=== PATIENT | female | born 1990 | race African-American/Black ===

== ENCOUNTER 2019-12-27 13:50 | Emergency (ER) | payer OTHER, SELFPAY ==
[2019-12-27 14:13] VITALS: BP 122/63; PULSE 83; RESP 18; TEMP 36.7; O2SAT 97
--- NOTE | 2019-12-27 15:03 | PC.NURSE ---
in br to obtain ua spec.
--- NOTE | 2019-12-27 15:39 | ED.GENADULT ---
HPI - General Adult General Chief complaint: Urogenital-Female <KEARA Bee - Last Filed: 01/03/20 03:54> Stated complaint: std <KEARA Bee - Last Filed: 01/03/20 03:54> Time Seen by Provider: 12/27/19 15:39 <KEARA Bee - Last Filed: 01/03/20 03:54> Source: patient and RN notes reviewed <KEARA Bee - Last Filed: 01/03/20 03:54> Mode of arrival: ambulatory <KEARA Bee - Last Filed: 01/03/20 03:54> Limitations: no limitations <KEARA Bee - Last Filed: 01/03/20 03:54> History of Present Illness HPI narrative: 29-year-old -Citizen Of [place] female presents with complaints of burning and urgency with urination, vaginal itching, and that she was exposed to trichomoniasis for 1 day. Curtis says her boyfriend called her yesterday and infromed her he tested positive for Trichomoniasis. No treatment. No significant pelvic pain. No dysuria. Denies fever or chills. No concerns for STDs. No history of STDs. No new partners. Sexually active. Unprotected intercourse with present partner. Denies multiple partners. Does not douche. No exacerbating factors. Denies hematuria or vaginal bleeding. Denies being , LMP 12/17/19.? No flank pain. Denies nausea, vomiting, and abdominal pain. Remains active. The patient reports she have not been diagnosed with COVID-19. The patient reports she is not waiting for the results of a COVID-19 lab test. The patient reports she do not have fever, chills, weakness, fatigue, or myalgia. The patient reports she do not have a new or worsening cough or shortness of breath. Denies chest pain. The patient reports she do not have any rhinorrhea, congestion, sore throat, and diarrhea. Tolerating po intake well. Denies recent traveling. Denies concerns for COVID-19 or exposures been home since [id number] order except for essential household needs, working, and return home. At this time, patient is not suspected of having COVID-19. Some parts of this dictation were generated by voice recognition software and may contain typographical and/or grammatical inaccuracies. <KEARA Bee - Last Filed: 01/03/20 03:54> Related Data Allergies/adverse reactions: Allergies Allergy/AdvReac Type Severity Reaction Status Date / Time No Known Allergies Allergy Verified 11/05/19 12:48 <KEARA Bee - Last Filed: 01/03/20 03:54> Review of Systems Review of Systems: Narrative: CONSTITUTIONAL: Denies fever, chills, sweats. EYES: Denies visual changes, redness, discharge. ENT: Denies rhinorrhea, congestion, sore throat, otalgia. CARDIOVASCULAR: Denies chest pain, palpitations, edema. RESPIRATORY: Denies dyspnea, wheezing, cough. GASTROINTESTINAL: Denies abdominal pain, nausea, vomiting, diarrhea. GENITOURINARY: Complains of dysuria (burning and urgency), vaginal irritation, exposed to trichomoniasis. Denies hematuria, abnormal discharge. SKIN: Denies rash or itching. MUSCULOSKELETAL: Denies acute back pain, joint pain, or myalgia. NEUROLOGIC: Denies numbness or focal weakness. PSYCHIATRIC: Denies anxiety or depression. All systems reviewed & are unremarkable except as noted in HPI and below. <KEARA Bee - Last Filed: 01/03/20 03:54> [facility] Past Medical History Medical History: Medical History (Updated 12/28/19 @ 00:01 by Tej Machado) Heart disease <KEARA Bee - Last Filed: 01/03/20 03:54> Surgical History Surgical History: Surgical History (Updated 12/27/19 @ 19:23 by KEARA Bee) History of heart surgery <KEARA Bee - Last Filed: 01/03/20 03:54> Family History Family History: Family History (Updated 12/27/19 @ 19:24 by KEARA Bee) Father Alive and well Mother Alive and well <KEARA Bee - Last Filed: 01/03/20 03:54> Social History Social History:
== END 2019-12-27 15:57 | disposition home or self-care (01) ==
PROVIDERS: Emergency Provider Nurse Practitioner Family
DX: Z20.2 Contact with and (suspected) exposure to infections with a predominantly sexual mode of transmission (principal); F17.220 Nicotine dependence, chewing tobacco, uncomplicated
CPT/HCPCS: 81003; 87077; 87086; 87088; 87491; 87591; 87661; 99213; G0463

== ENCOUNTER 2020-11-17 15:38 | Emergency (ER) | payer OTHER, SELFPAY ==
--- NOTE | ~2020-11-17 | XR_ITS ---
XR wrist LT min 3V 11/17/2020 16:04 Indication: Left radial wrist pain Procedure: 4 views left wrist Comparison: No prior studies for comparison. Findings: There is an ossific density dorsal to the carpal bones on the lateral view, consistent with age-indeterminate triquetral fracture. No other fracture or traumatic malalignment. Mild dorsal soft tissue swelling. Impression: 1: Age-indeterminate triquetral fracture. Correlate for point tenderness. Reviewed, dictated and finalized at location B. Impression: 1: Age-indeterminate triquetral fracture. Correlate for point tenderness.
[2020-11-17 15:48] VITALS: BP 122/61; PULSE 85; RESP 16; TEMP 36.3; O2SAT 99
--- NOTE | 2020-11-17 15:54 | ED.UPPEXIN ---
HPI - Extremity Injury (Upper) General Chief Complaint: Extremity Injury, Upper Stated Complaint: Left Wrist Pain Time Seen by Provider: 11/17/20 15:54 Source: patient Mode of arrival: ambulatory Limitations: no limitations History of Present Illness HPI narrative: Curtis Kang is a 29 yo female with a PMH of heart surgery as a child who comes to express care with L wrist pain - sudden onset. 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 EYES: Denies visual changes, redness, discharge. ENT: Denies rhinorrhea, congestion, sore throat, otalgia. CARDIOVASCULAR: Denies chest pain, palpitations, edema. RESPIRATORY: Denies dyspnea, wheezing, cough GASTROINTESTINAL: Denies abdominal pain, nausea, vomiting, diarrhea. GENITOURINARY: Denies dysuria, hematuria, abnormal discharge SKIN: Denies rash or itching. NEUROLOGIC: Denies numbness, or focal weakness. PSYCHIATRIC: Denies anxiety or depression. Left wrist pain PMFSH Past Medical History Medical History Heart disease Surgical History Surgical History History of heart surgery Family History Family History Father Alive and well Mother Alive and well Grandparent Diabetes mellitus Social History Social History Smoking status: Never smoker Smokeless tobacco user: chewing tobacco Second hand tobacco smoke exposure: No Alcohol intake: never Substance use: never Gender identity (if verbalized by the patient): Female Comments At time of signature, I agree with nursing past medical, surgical, social and family history. There is no relevant family history pertinent to the presenting complaint. Exam Narrative: Exam Narrative: GENERAL: This is a well-nourished, well-developed patient, in mild distress. HEAD: normocephalic, atraumatic. EYES: Sclera clear/white. Vision is grossly intact. EARS: External ears normal, Hearing grossly intact. NOSE: External nose normal without nasal discharge, nares without redness, no rhinorrhea. THROAT: Mucous membranes moist, NECK: Neck supple, CARDIOVASCULAR: Regular rate and rhythm without murmurs, gallops, or rubs. RESPIRATORY: Clear to auscultation. Breath sounds equal bilaterally. No wheezes, rales, or rhonchi. GASTROINTESTINAL: Abdomen soft, non-tender, SKIN: warm, intact with no suspicious lesions or rash, good texture and turgor. NEURO: awake, alert, and oriented to person, place and time. There were no obvious focal neurologic abnormalities. Steady gait EXTREMITIES: Normal range of motion on R - c/o mild swelling and pain on ulnar side of L wrist- good intrafinger strength, goog tomasa opposition, flex and extend fair, able to supinate/ pronate BACK: Nontender without deformity Course Course Emergency Course: 39-year-old patient comes to [facility] for evaluation of left wrist, pain in radial side of wrist no known injury but has mild swelling X-ray left wrist showed age indeterminate triquetral fx- combined with tenderness, placed in age wrap and will get wrist guard. RICE, anti inflammatory for pain Vital Signs Vital signs: Vital Signs Temperature 97.4 F L 11/17/20 15:48 Pulse Rate 85 11/17/20 15:48 Respiratory Rate 16 11/17/20 15:48 Blood
== END 2020-11-17 17:03 | disposition home or self-care (01) ==
PROVIDERS: Emergency Provider Nurse Practitioner
DX: S62.115A Nondisplaced fracture of triquetrum [cuneiform] bone, left wrist, initial encounter for closed fracture (principal); X58.XXXA Exposure to other specified factors, initial encounter; S63.502A Unspecified sprain of left wrist, initial encounter; W51.XXXA Accidental striking against or bumped into by another person, initial encounter; Y99.0 Civilian activity done for income or pay
CPT/HCPCS: 73110; 99214; G0463

== ENCOUNTER 2021-07-26 15:51 | Emergency (ER) | payer OTHER, SELFPAY ==
[2021-07-26 17:01] VITALS: BP 122/67; PULSE 97; RESP 16; TEMP 35.7; O2SAT 100
--- NOTE | 2021-07-26 17:12 | ED.FEMALEGU ---
HPI - Female Genitourinary General Chief complaint: Urogenital-Female Stated complaint: BV INFECTION Time Seen by Provider: 07/26/21 17:35 Source: patient and RN notes reviewed Mode of arrival: ambulatory Limitations: no limitations History of Present Illness HPI Narrative: 30-year-old female presents with concern for vaginal itching. She reports she began having itching or vaginal irritation 2 days ago. Reports she tried Monistat which seemed to irritate her labia more. She denies any vaginal discharge, urine frequency, urgency, flank pain, nausea, vomiting, fever. MD elicited complaint: genital itching Related Data Allergies Allergy/AdvReac Type Severity Reaction Status Date / Time No Known Allergies Allergy Verified 11/17/20 15:52 Review of Systems Review of Systems: CONSTITUTIONAL: Denies malaise, chills, sweats, or fever. CARDIOVASCULAR: Denies chest pain, palpitations, or edema. RESPIRATORY: Denies cough or dyspnea. GASTROINTESTINAL: Denies abdominal pain, nausea, vomiting, diarrhea GENITOURINARY: Denies dysuria, frequency, urgency, suprapubic pressure. Denies flank pain or hematuria. Reports vaginal itching and irritation SKIN: Denies rash or itching. MUSCULOSKELETAL: Denies back pain or myalgia. All systems reviewed & are unremarkable except as noted in HPI and below PMFSH Past Medical History Medical History Heart disease Surgical History Surgical History History of heart surgery Family History Family History Father Alive and well Mother Alive and well Grandparent Diabetes mellitus Social History Social History Smoking status: Never smoker Smokeless tobacco user: chewing tobacco Second hand tobacco smoke exposure: No Alcohol intake: never Substance use: never Gender identity (if verbalized by the patient): Female Comments At time of signature, agree with nursing past medical, surgical, social and family history. There is no relevant family history pertinent to the presenting complaint Exam Narrative: GENERAL: Well-appearing, well-nourished, and in no acute distress. HEAD: Normocephalic. EYES: PERRLA, conjunctivae clear. NECK: Supple. No lymphadenopathy CHEST: Clear to auscultation. No respiratory distress. HEART: Regular rate and rhythm. SKIN: Warm, dry, no rash. NEURO: Alert and oriented x3. PSYCH: Normal mood and affect Course Course Emergency Course: Patient is aware of diagnosis, understands and agrees to treatment plan. Anticipatory guidance given. Patient agrees to follow-up as directed and is aware of reasons to seek care at the emergency department. Portions of this record may have been created with voice recognition software Level of Care: Express Care Visit Vital Signs Vital signs: Vital Signs Temperature 96.2 F L 07/26/21 17:01 Pulse Rate 97 07/26/21 17:01 Respiratory Rate 16 07/26/21 17:01 Blood Pressure 122/67 07/26/21 17:01 Pulse Oximetry 100 07/26/21 17:01 Temperature 96.2 F L 07/26/21 17:01 Pulse Rate 97 07/26/21 17:01 Respiratory Rate 16 07/26/21 17:01 Blood Pressure 122/67 07/26/21 17:01 Pulse Oximetry 100 07/26/21 17:01 Reviewed. MDM - Female Genitourinary MDM Narrative Medical decision making narrative: Exam findings and UA show no acute concerns or changes; patient is non-toxic appearing and is in no distress. Patient is appropriate for outpatient treatment and follow-up. Differential Diagnosis Differential diagnosis: Likely urinary tract infection and cystitis Lab Data Labs: Urine Glucose Negative Reference Range: Negative Urine Bilirubin Negative Reference Rang
== END 2021-07-26 17:49 | disposition home or self-care (01) ==
PROVIDERS: Emergency Provider Nurse Practitioner
DX: N89.8 Other specified noninflammatory disorders of vagina (principal)
CPT/HCPCS: 81003; 99213; G0463

== ENCOUNTER 2022-09-28 15:11 | Emergency (ER) | payer OTHER, SELFPAY ==
[2022-09-28 15:14] VITALS: BP 133/64; PULSE 88; RESP 18; TEMP 36.6
[2022-09-28 16:34] LABS: Appearance Urine Cloudy (Clear); Bacteria Urine 1+ /hpf; Bilirubin Urine Negative (Negative); Blood Urine Negative (Negative); Color Urine Yellow (Yellow); Glucose Urine UA Negative (Negative); Ketones Urine Negative (Negative); Leukocyte Esterase Ur 3+ LEU/UL (Negative); Nitrate Urine Negative (Negative); Non Pathogenic Casts 0-2; Protein Urine Negative (Negative); RBC Urine 0-2 /hpf (0-2); Specific Grav Ur 1.019 (1.001-1.035); Squamous Epithelial Cell Urine Many /hpf (Few); Urobilinogen Urine 0.2 mg/dL (<2.0); pH Urine 5.5 (5.0-9.0)
[2022-09-28 17:03] LABS: Add Urine Microscopic? YES
--- NOTE | 2022-09-28 17:25 | ED.FEMALEGU ---
HPI - Female Genitourinary General Chief complaint: DEPUTY HEAD Stated complaint: vaginal pain Time Seen by Provider: 09/28/22 16:46 Source: patient and RN notes reviewed Mode of arrival: ambulatory Limitations: no limitations History of Present Illness HPI Narrative: This is a 31 year old female who presents for evaluation of vaginal irritation and discharged. She reports history of bacterial vaginosis. She has vaginal irritation and vaginal discharge for 3 days. She describes her discharge as white and creamy without odor. She is concerned she has BV. She tried monostat without improvement of her symptoms. She denies pelvic pain, nausea, vomiting or painful sexual intercourse. She denies recent known exposure to STD or partner with symptoms. She has appointment with [facility] next week for pap smear but she did not want to wait on that visit. Related Data Allergies Allergy/AdvReac Type Severity Reaction Status Date / Time No Known Allergies Allergy Verified 09/28/22 16:25 Review of Systems Constitutional: Constitutional: Denies weakness Cardiovascular: Cardiovascular: Denies syncope, Denies rapid heart rate, Denies irregular heart rhythm, Denies leg edema and Denies dyspnea Respiratory: Respiratory: Denies chest congestion, Denies hemoptysis, Denies excessive phlegm production and Denies dyspnea Gastrointestinal: Gastrointestinal: Denies abdominal pain, Denies hematochezia, Denies diarrhea and Denies vomiting Genitourinary: Genitourinary: Denies hematuria, Denies nocturia, Denies genital lesions, Denies dysuria, Denies pelvic pain and Reports vaginal discharge Musculoskeletal: Musculoskeletal: Denies joint swelling, Denies loss of height and Denies muscle weakness Neurologic: Denies syncope, Denies focal weakness and Denies weakness [facility] Past Medical History Medical History Heart disease Surgical History Surgical History History of heart surgery Family History Family History Father Alive and well Mother Alive and well Grandparent Diabetes mellitus Social History Social History Smoking status: Never smoker Smokeless tobacco user: chewing tobacco Second hand tobacco smoke exposure: No Alcohol intake: never Substance use: never Living arrangements: with family Occupation/Education: occupation Gender identity (if verbalized by the patient): Female Exam Const: General: no acute distress and alert Nutritional Appearance: well nourished Orientation/consciousness: patient oriented x3 Eyes: EOM: EOMs intact bilaterally Resp: Effort & Inspection: normal respiratory effort GI: GI Palp: Yes Soft to palpation, No Tenderness to palpation present (GI), No Guarding due to palpation present (GI) and No Rigid due to palpation Auscultation: normal bowel sounds : General: Yes no CVA tenderness Speculum Exam - Vagina: abnormal vaginal discharge yellow Speculum Exam - Cervix: Cervical os closed Bimanual exam- vagina & uterus: no cervical motion tenderness Bimanual Exam- Adnexa, other: adnexal mass, no tenderness and No adnexal tenderness OB/external & speculum: no herpetic lesions Back/Spine/Pelvis: Back: no CVA tenderness Skin: General skin exam: normal color Rashes: no rashes Wounds: no wounds Neuro: General: patient oriented x3, moves all extremities and CN's II-XI intact bilaterally Extrem: General: normal to inspection Psych: Appearance: grossly normal Mental Status: mental status grossly normal Affect: normal affect Attitude: cooperative Course Reevaluation(s) Reevaluation #1: Patient presented for vaginal discharge. Swabs ordered for GC chlamydia, trichomonas and genital culture. She understands only trichomonas will return today. trichomonas was negative so t
== END 2022-09-28 18:24 | disposition home or self-care (01) ==
PROVIDERS: Emergency Medicine; Emergency Provider General Practice; PCP Obstetrics & Gynecology
DX: N89.8 Other specified noninflammatory disorders of vagina (principal); I51.9 Heart disease, unspecified; F17.220 Nicotine dependence, chewing tobacco, uncomplicated
CPT/HCPCS: 81001; 81025; 87070; 87077; 87086; 87088; 87147; 87491; 87591; 87808; 99284

== ENCOUNTER 2024-04-30 09:26 | Emergency (ER) | payer SELFPAY ==
--- NOTE | ~2024-04-30 | XR_ITS ---
EXAMINATION: XR chest 2V DATE: 04/30/2024 10:39 INDICATION: Chest tightness. TECHNIQUE: Frontal and lateral views of the chest were obtained. COMPARISON: Chest 2 views 06/04/17 FINDINGS: There is no pneumonia, pleural effusion, or pneumothorax. The heart size is normal. Median sternotomy wires and mediastinal surgical clips are noted. IMPRESSION: 1. No acute cardiopulmonary disease. Reviewed, dictated and finalized at location A.
[2024-04-30 09:30] VITALS: BP 125/81; PULSE 85; RESP 20; TEMP 36.7; O2SAT 96
[2024-04-30 09:34] VITALS: PULSE 85
--- NOTE | 2024-04-30 09:53 | ECG_ITS ---
Test Date: 2024-04-30 10:02:57 Measurements Intervals [facility] Rate: 71 P: 16 KS: 161 QRS: -14 QRSD: 109 T: 84 QT: 377 QTc: 410 Interpretive Statements SINUS RHYTHM WITHIN NORMAL LIMITS No previous ECG available for comparison Electronically Signed On 04-30-2024 14:37:48 CDT by Lon Vega M.D.
--- NOTE | 2024-04-30 10:01 | ED.GENADULT ---
HPI - General Adult General Chief complaint: Shortness of Breath/Dyspnea Stated complaint: Allergic Reaction Time Seen by Provider: 04/30/24 09:38 History of Present Illness HPI narrative: 33-year-old female presenting to the emergency department for evaluation for having some chest tightness and throat swelling while she was driving today. Patient states she was having some nausea before starting the drive and while driving she had onset of the symptoms. Patient pulled over and was treated by EMS and was given IM Benadryl. Emergency department patient states her symptoms have resolved. Patient denies any throat tightness or swelling, patient denies any chest pain or shortness of breath. Patient reports he does have a prior history of seizure disorder had a seizure yesterday. Related Data Allergies Allergy/AdvReac Type Severity Reaction Status Date / Time No Known Allergies Allergy Verified 04/30/24 09:35 Review of Systems Review of Systems: All systems reviewed & are unremarkable except as noted in HPI and below PMFSH Past Medical History Medical History Heart disease Surgical History Surgical History History of heart surgery Family History Family History Father Alive and well Mother Alive and well Grandparent Diabetes mellitus Social History Social History Smoking status: Never smoker Smokeless tobacco user: chewing tobacco Second hand tobacco smoke exposure: No Alcohol intake: never Substance use: never Living arrangements: with family Occupation/Education: occupation Gender identity (if verbalized by the patient): Female Exam Narrative: APPEARANCE: Well appearing, no pain, no distress, well-nourished. HEAD: normocephalic, atraumatic. EYES: PERRLA/EOMI, conjunctivae clear. NOSE: Normal no drainage EARS:TMS clear with good light reflex. THROAT: Pharynx clear, no exudate. NECK: Supple. No adenopathy, no masses. RESPIRATORY: Airway patent, respirations nonlabored. Clear to auscultation bilaterally, no rales, rhonchi, wheezing. CARDIOVASCULAR: Regular rate and rhythm without murmurs rubs or gallops. ABDOMINAL: Soft, nontender, nondistended, normal bowel sounds MUSCULOSKELETAL: Moves all extremities. Strength/ROM intact, No edema, No calf tenderness. NEURO: Alert. Cranial nerves II through XII intact. Good gait. Good coordination SKIN: Warm, dry. Normal Color Course Course Emergency Course: Patient felt improved with treatment and was discharged to home. Vital Signs Vital signs: Vital Signs Temperature 98.1 F 04/30/24 09:30 Pulse Rate 85 04/30/24 09:30 Respiratory Rate 20 04/30/24 09:30 Blood Pressure 125/81 04/30/24 09:30 Pulse Oximetry 96 04/30/24 09:30 Oxygen Delivery Room Air 04/30/24 09:30 Temperature 98.1 F 04/30/24 09:30 Pulse Rate 72 04/30/24 11:11 Respiratory Rate 14 04/30/24 11:11 Blood Pressure 124/65 04/30/24 11:11 Pulse Oximetry 100 04/30/24 11:11 Oxygen Delivery Room Air 04/30/24 11:10 Medical Decision Making MDM Narrative Medical decision making narrative: 33-year-old female presents to the emergency department for evaluation for throat swelling and chest tightness that occurred while she was driving. Patient states symptoms have resolved. Patient has no underlying evidence of allergic reaction. This plus secondary to a panic attack versus bronchospasm. Patient had was negative for influenza RSV and for COVID Vital Signs Vital Signs: Vital Signs Temperature 98.1 F 04/30/24 09:30 Pulse Rate 85 04/30/24 09:30 Respiratory Rate 20 04/30/24 09:30 Blood Pressure 125/81 04/30/24 09:30 Pulse Oximetry 96 04/30/24 09:30 Oxygen Delivery Room Air 04/30/24 09:30 Temperat
[2024-04-30 10:40] LABS: Influenza A QL RT-PCR Negative (Negative); Influenza B QL RT-PCR Negative (Negative); RSV RNA, RT-PCR Negative (Negative); SARS-CoV-2 RNA PCR Negative (Negative)
[2024-04-30 11:10] VITALS: O2SAT 100
[2024-04-30 11:11] VITALS: BP 124/65; PULSE 72; RESP 14; O2SAT 100
== END 2024-04-30 11:25 | disposition home or self-care (01) ==
LOC: ANHED 10:58
PROVIDERS: Emergency Provider Emergency Medicine
DX: R07.89 Other chest pain (principal); R22.1 Localized swelling, mass and lump, neck; Z20.822 Contact with and (suspected) exposure to COVID-19; G40.909 Epilepsy, unspecified, not intractable, without status epilepticus; I51.9 Heart disease, unspecified; F17.220 Nicotine dependence, chewing tobacco, uncomplicated
CPT/HCPCS: 71046; 87637; 93005; 99284

== ENCOUNTER 2024-05-01 16:23 | Emergency (ER) | payer SELFPAY ==
--- NOTE | ~2024-05-01 | CT_ITS ---
CT abdomen pelvis w con Ordering provider: Janis Wilhelm PA-C History: 33 years Female with . abd pain, vomiting, UTI . Comparison: None. Technique: CT abdomen and pelvis with IV and without oral contrast. Automated exposure control and it erative reconstruction technique were employed. The dose-length product was 240.64 mGy-cm. 100 mL Omn ipaque 350 was given IV. Findings: VISUALIZED LOWER CHEST: Normal. UPPER ABDOMINAL ORGANS: Liver: Heterogeneous enhancement is seen in the liver which may indicate passive hepatic congestion. Clinical correlation advised. Gallbladder: Normal. Spleen: Normal. Stomach/duodenum: Normal. Pancreas: Normal. Adrenals: Normal. Kidneys: Normal. PELVIC ORGANS: The bladder is underfilled with slightly thickened wall. Uterus: An enhancing lesion is seen in the uterus anteriorly most likely a fibroid measuring 1.6 cm. Cystic area is seen in to the right of the uterus most likely ovarian cystic mass which measures 3.2 x 11.1 x 7.6 cm. Ultrasound evaluation and correlation advised. Nabothian cyst is seen measuring 2 cm .. BOWEL AND MESENTERY: Colon: No evidence of diverticulitis. Normal appendix. Small Bowel: Normal. No obstruction. Peritoneum/mesentery: No free air or free fluid. No mesenteric lymphadenopathy. RETROPERITONEUM: Normal aorta. No retroperitoneal lymphadenopathy. MUSCULOSKELETAL: Superficial soft tissues: Small inguinal lymph nodes are noted. The superficial soft tissues are norm al. Bones: Normal spine. IMPRESSION: 1. No evidence of appendicitis, diverticulitis or intestinal obstruction. 2. Heterogenous enhancement of the liver which may indicate venous congestion. Clinical correlation and follow-up advised. 3. Cystic structure seen on the right side of the pelvis which is most likely ovarian cystic mass fu rther evaluation with ultrasound for confirmation is advised. 4. Small fibroid uterus. Nabothian cysts. Reviewed, dictated and finalized at location A. IMPRESSION: 1. No evidence of appendicitis, diverticulitis or intestinal obstruction. 2. Heterogenous enhancement of the liver which may indicate venous congestion. Clinical correlation and follow-up advised. 3. Cystic structure seen on the right side of the pelvis which is most likely ovarian cystic mass further evaluation with ultrasound for confirmation is advi sed. 4. Small fibroid uterus. Nabothian cysts.
[2024-05-01 16:27] VITALS: BP 140/70; PULSE 84; RESP 16; TEMP 36.5; O2SAT 98
[2024-05-01 16:42] LABS: Basophils Percent Auto 0.4 % (0.2-1.2); Eosinophils Absolute Auto 0.1 K/mm3 (0-0.3); Eosinophils Percent Auto 0.8 % (0-4.4); Hematocrit 41.5 % (37.0-47.0); Hemoglobin 13.6 g/dL (12.0-15.0); Immature Granulocyte Absolute 0.02 K/mm3 (0.00-0.031); Immature Granulocyte Percent A 0.3 % (0-0.5); Lymphocytes Absolute Auto 1.55 K/mm3 (0.9-3.2); Lymphocytes Percent Auto 21.6 % (18.3-44.2); Mean Corpuscular HGB Conc 32.8 g/dl (32-36); Mean Corpuscular Hemoglobin 29.6 pg (26-34); Mean Corpuscular Volume 90.4 fl (80-100); Mean Platelet Volume 10.4 fl (7.4-10.4); Monocytes Absolute Auto 0.5 K/mm3 (0.1-0.6); Monocytes Percent Auto 7.2 % (2.6-8.5); Neutrophils Percent Auto 69.7 % (45.5-73.1); Platelet Count Result 287 k/mm3 (150-375); Red Blood Count 4.59 M/mm3 (4.2-5.4); Red Cell Distribution Width 12.4 % (11.5-14.5); White Blood Count 7.2 K/mm3 (4.5-10.0)
[2024-05-01 17:17] LABS: Alanine Aminotransferase 14 U/L (6-35); Albumin Level 4.4 g/dL (3.5-5.1); Alkaline Phosphatase 53 U/L (38-126); Anion Gap 12 mmol/L (4-12); Aspartate Amino Transferase 26 U/L (14-36); Bilirubin,Total 0.8 mg/dL (0.2-1.3); Blood Urea Nitrogen 9 mg/dL (7-17); Calcium 9.1 mg/dL (8.4-10.2); Carbon Dioxide 22 mmol/L (22-30); Chloride 106 mmol/L (98-107); Estimated CRCL calculation 70 ml/min; Estimated Glomerular Filt Rate > 60; Glucose 115 mg/dL (65-110); Lipase 124 U/L (23-300); Potassium 3.1 mmol/L (3.4-5.0); Sodium 140 mmol/L (137-145)
--- NOTE | 2024-05-01 18:10 | ED.NAVMDI ---
HPI - Nausea/Vomiting/Diarrhea General Chief complaint: Nausea/Vomiting/Diarrhea <SYLVIE Harding Last Filed: 05/01/24 18:15> Stated complaint: N/V <SYLVIE Harding Last Filed: 05/01/24 18:15> Time Seen by Provider: 05/01/24 18:10 <SYLVIE Harding Last Filed: 05/01/24 18:15> Focused HPI: Patient is a 33 y/o female who presents to the ED with c/o N/V. States sx's began yesterday and persisted into today. Unable to keep down food or drink. Denies hx of similar episodes or sick contacts. States she feels very dehydrated. Does note she has had decreased urine output today. She also reports a few episodes of diarrhea. Denies abdominal pain, rectal bleeding, melena, cough, cold sx's, fever. GENERAL: Well-appearing, well-nourished, and in no acute distress. HEAD: Normocephalic, atraumatic. CHEST: Clear to auscultation. ?No respiratory distress. HEART: Regular rate and rhythm.? ABD: No tenderness throughout abdomen. NEURO: ?Alert and oriented x3. Patient screened in triage and initial orders placed.? ?Additional care and disposition to be based upon?diagnostic testing and treatment. <SYLVIE Harding Last Filed: 05/01/24 18:15> Source: patient <SYLVIE Harding Last Filed: 05/01/24 18:15> Mode of arrival: ambulatory <SYLVIE Harding Last Filed: 05/01/24 18:15> Limitations: no limitations <SYLVIE Harding Last Filed: 05/01/24 18:15> Related Data Allergies/Adverse reactions: Allergies Allergy/AdvReac Type Severity Reaction Status Date / Time No Known Allergies Allergy Verified 05/01/24 16:23 <SYLVIE Harding Last Filed: 05/01/24 18:15> Review of Systems Review of Systems: CONSTITUTIONAL: Denies fever GASTROINTESTINAL: Reports abdominal pain, nausea, vomiting, and diarrhea. GENITOURINARY: Denies dysuria <Janis Wilhelm PA-C - Last Filed: 05/02/24 00:48> All systems reviewed & are unremarkable except as noted in HPI and below <Janis Wilhelm PA-C - Last Filed: 05/02/24 00:48> PMFSH Past Medical History Medical History: Medical History Heart disease <Carmelita Hernandes PA-C - Last Filed: 05/01/24 18:15> Surgical History Surgical History: Surgical History History of heart surgery <Carmelita Hernandes PA-C - Last Filed: 05/01/24 18:15> Family History Family History: Family History Father Alive and well Mother Alive and well Grandparent Diabetes mellitus <Carmelita Hernandes PA-C - Last Filed: 05/01/24 18:15> Social History Social History: Social History Smoking status: Never smoker Smokeless tobacco user: chewing tobacco Second hand tobacco smoke exposure: No Alcohol intake: never Substance use: never Living arrangements: with family Occupation/Education: occupation Gender identity (if verbalized by the patient): Female <SYLVIE Harding Last Filed: 05/01/24 18:15> Exam Narrative: GENERAL: Well-appearing, well-nourished, and in no acute distress. HEAD: Normocephalic, atraumatic. EYES: EOMI. CHEST: Clear to auscultation. No respiratory distress. No wheezes rales or rhonchi HEART: Regular rate and rhythm. No murmur heard. Normal peripheral pulses. ABDOMEN: Soft, nontender, nondistended, normal active bowel sounds. EXTREMITIES: Normal range of motion. No edema. SKIN: Warm, dry, no rash. NEURO: No focal deficits. Alert and oriented x3. PSYCH: Normal mood and affect <Janis Wilhelm PA-C - Last Filed: 05/02/24 00:48> Course Course Emergency Course: Patient updated on her workup. Tolerating PO challenge. Ready for discharge <Janis Wilhelm PA-C - Last Filed: 05/02/24 0
[2024-05-01] MEDS: ONDANSETRON INJ 4 MG/2 ML VIAL IV PUSH (18:16)
[2024-05-01] MEDS: POTASSIUM CHLORIDE 20 MEQ ER TABLET 40 MEQ PO (18:16)
[2024-05-01 18:27] LABS: BEDSIDEPREGUCG Negative (Negative)
[2024-05-01 18:37] LABS: Add Urine Microscopic? YES; Appearance Urine Cloudy (Clear); Bacteria Urine 1+ /hpf; Bilirubin Urine Negative (Negative); Blood Urine Negative (Negative); Color Urine Yellow (Yellow); Glucose Urine UA Negative (Negative); Ketones Urine Trace mg/dL (Negative); Leukocyte Esterase Ur 1+ LEU/UL (Negative); Nitrate Urine Negative (Negative); Non Pathogenic Casts 0-2; Protein Urine Negative (Negative); RBC Urine 0-2 /hpf (0-2); Squamous Epithelial Cell Urine Moderate /hpf (Few); Urobilinogen Urine 0.2 mg/dL (<2.0)
[2024-05-01 20:48] VITALS: BP 124/74; PULSE 68; RESP 16; O2SAT 98
[2024-05-01 20:49] VITALS: BP 124/74; O2SAT 97
[2024-05-01] MEDS: SODIUM CHLORIDE 0.9% IV 1,000 ML 999 ML IV CONT (20:49)
[2024-05-01 21:06] LABS: Magnesium 1.6 mg/dL (1.6-2.3)
[2024-05-01] MEDS: MAGNESIUM SULF 1 GM/D5W 100 ML 1 GM/100 ML BAG IVPB (22:08)
[2024-05-01 22:10] VITALS: BP 129/70; PULSE 70; RESP 16; TEMP 36.6; O2SAT 98
[2024-05-02 01:08] VITALS: BP 129/86; PULSE 84; RESP 20; O2SAT 98
== END 2024-05-02 01:09 | disposition home or self-care (01) ==
PROVIDERS: Physician Assistant; Emergency Provider Physician Assistant
DX: N83.201 Unspecified ovarian cyst, right side (principal); R11.2 Nausea with vomiting, unspecified; I51.9 Heart disease, unspecified; F17.220 Nicotine dependence, chewing tobacco, uncomplicated; D25.9 Leiomyoma of uterus, unspecified; N88.8 Other specified noninflammatory disorders of cervix uteri; R93.2 Abnormal findings on diagnostic imaging of liver and biliary tract
CPT/HCPCS: 36415; 74177; 80053; 81001; 81025; 83690; 83735; 85025; 87086; 96361; 96365; 96375; 99284; A9270; J2405; J3475; J7030; Q9967